=== PATIENT | female | born 1985 | race Caucasian/White ===

== ENCOUNTER 2018-05-20 15:37 | Inpatient (IN) | payer SELFPAY ==
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
[2018-05-20] MEDS ORDERED: Acetaminophen 500 MG TAB ONE (18:33)
[2018-05-20] MEDS ORDERED: Ketorolac Tromethamine 30 MG/ML VIAL ONE (18:33)
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
[2018-05-20] MEDS ORDERED: Ondansetron PF 4 MG/2 ML Vial ONE (18:49)
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
[2018-05-20 19:10] LABS: Actual Bicarbonate (HCO3a) 24.5 mEq/L (22-28); Analyzer IN Cardio ER; Calcium, Ionized 1.14 mmol/L (1.12-1.30); Carboxyhemoglobin (COHb) 0.5 gm% (0.0-3.0); Hemoglobin (Hb) 13.2 g/dL (12.0-16.0); Potassium - ABG Lab 3.68 mmol/L (3.70-5.30); pH, Arterial 7.36 (7.35-7.45)
[2018-05-20 19:11] LABS: Puncture Site RRA
[2018-05-20] MEDS ORDERED: Dextrose 50% Abboject 50 ML SYRINGE SLOW IVP PRN (20:21)
[2018-05-20] MEDS ORDERED: Ondansetron PF 4 MG/2 ML Vial IVP PRN (20:21)
[2018-05-20] MEDS ORDERED: Dextrose 5% in Water 1,000 ML IV PRN (20:21)
[2018-05-20] MEDS ORDERED: hydrALAZINE 20 MG/ML VIAL SLOW IVP PRN (20:21)
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
[2018-05-20] MEDS ORDERED: Acetaminophen 500 MG TAB PO SCH (21:15)
[2018-05-20] MEDS: Sodium Chloride 0.9% 1,000 ML IV SCH (22:28)
[2018-05-20] MEDS: Famotidine 20 MG TAB PO SCH (22:32)
[2018-05-20] MEDS: Senokot S 8.6-50 MG TAB PO SCH (22:35)
[2018-05-20] MEDS: traMADol HCl 50 MG TAB PO PRN (22:36)
[2018-05-20] MEDS: Ketorolac Tromethamine 30 MG/ML VIAL IVP SCH (23:00)
[2018-05-20] MEDS: Acetaminophen 500 MG TAB PO SCH (23:06)
[2018-05-20 23:56] VITALS: BMI 31.0
[2018-05-20] MEDS ORDERED: Ketorolac Tromethamine 30 MG/ML VIAL IVP SCH (23:59)
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
[2018-05-21] MEDS: traMADol HCl 50 MG TAB PO PRN ×2 (03:38→10:31)
[2018-05-21] MEDS: Ketorolac Tromethamine 30 MG/ML VIAL IVP SCH (05:38)
[2018-05-21] MEDS: Acetaminophen 500 MG TAB PO SCH ×3 (05:38→18:29)
[2018-05-21 08:12] LABS: #Basophils 0.1 thou/uL (0.0-0.2); #Eosinphils 0.3 thou/uL (0.0-0.7); #Lymphocytes 3.2 thou/uL (1.20-3.40); #Monocytes 0.7 thou/uL (0.11-0.59); #Neutrophils 5.2 thou/uL (1.40-6.50); %Basophils 0.8 % (0.0-1.0); %Eosinophils 2.8 % (0.0-10.0); %Monocytes 7.3 % (0.0-10.0); %Neutrophils 55.1 % (42.0-75.0); Hemoglobin 12.7 g/dL (12.0-16.0); Mean Corpuscular HGB CONC 34.5 g/dL (32.0-36.0); Mean Corpuscular Hemoglobin 30.6 pg (27.0-31.0); Mean Corpuscular Volume 88.9 fL (78.0-98.0); Mean Platelet Volume 8.2 fL (7.4-10.4); Platelet Count 232 thou/uL (130-400); Red Blood Cell (RBC) Count 4.13 mill/uL (4.20-5.40); White Blood Cell (WBC) Count 9.4 thou/uL (4.8-10.8)
[2018-05-21 08:21] LABS: Anion Gap 11 mmol/L (10-20); BUN (Urea Nitrogen) 9 mg/dL (7.0-18.7); Calc. Creatinine Clearance 145 mL/min (70-130); Calcium 8.4 mg/dL (7.8-10.44); Carbon Dioxide 25 mmol/L (22-29); Chloride 107 mmol/L (98-107); Estimated GFR-MDRD Greater than 90; Glucose 122 mg/dL (70-105); Magnesium 1.9 mg/dL (1.6-2.6); Phosphorus 3.7 mg/dL (2.3-4.7); Potassium 3.9 mmol/L (3.5-5.1); Sodium 139 mmol/L (136-145)
[2018-05-21] MEDS: Senokot S 8.6-50 MG TAB PO SCH ×2 (10:30→20:49)
[2018-05-21] MEDS: Polyethylene Glycol 3350 17 GM Packet PO SCH (10:30)
[2018-05-21] MEDS: Famotidine 20 MG TAB PO SCH ×2 (10:31→20:33)
[2018-05-21] MEDS: Sodium Chloride 0.9% 1,000 ML IV SCH (10:42)
--- NOTE | 2018-05-21 11:06 | PRG ---
DATE OF SERVICE: 05/21/2018 SUBJECTIVE: Ms. Bautista this morning actually appears to be significantly more comfortable than she was yesterday. Her neurologic status and her bilateral lower extremities remain intact. It is somewhat improved secondary to improvement in her pain. MRI from yesterday actually looks somewhat better than what I would have anticipated given the severity of her CT scan. The T12 was thought to be compression fracture and actually appears to be a chronic change such as a Schmorl's node. In speaking with Dr. London, it appears that her posterior longitudinal ligament is likely intact and she does have some dorsal CSF space around the spinal cord at the level of her fracture L1. There is a small area of epidural hematoma. However, this does not appear to have caused any major impact in her symptoms. As such, we will move forward with just conservative treatment in a molded TLSO brace. [facility] should be out to fit her for this and we will continue to follow. She may eat today. Job ID: [id number]
[2018-05-21] MEDS ORDERED: traMADol HCl 50 MG TAB PO SCH ×2 (12:00)
[2018-05-21] MEDS ORDERED: Gabapentin 100 MG CAP PO SCH (12:30)
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
[2018-05-21] MEDS: traMADol HCl 50 MG TAB PO SCH (16:21)
[2018-05-21] MEDS: Gabapentin 100 MG CAP PO SCH ×2 (16:21→20:33)
[2018-05-21] MEDS: tiZANidine HCl 4 MG TAB PO PRN (18:37)
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
[2018-05-21] MEDS: risperiDONE 0.25 MG TAB PO SCH (20:33)
[2018-05-21] MEDS: Escitalopram Oxalate 20 mg Tablet PO SCH (20:33)
[2018-05-22] MEDS: traMADol HCl 50 MG TAB PO SCH ×5 (00:01→23:55)
[2018-05-22] MEDS: Acetaminophen 500 MG TAB PO SCH ×5 (05:34→23:55)
[2018-05-22] MEDS ORDERED: Dexamethasone 10 MG/ML VIAL SLOW IVP SCH (08:30)
[2018-05-22] MEDS: risperiDONE 0.25 MG TAB PO SCH ×2 (08:51→22:03)
[2018-05-22] MEDS: Polyethylene Glycol 3350 17 GM Packet PO SCH (08:51)
[2018-05-22] MEDS: Senokot S 8.6-50 MG TAB PO SCH ×2 (08:51→22:02)
[2018-05-22] MEDS: tiZANidine HCl 4 MG TAB PO PRN (08:51)
[2018-05-22] MEDS: Gabapentin 100 MG CAP PO SCH ×3 (08:51→22:02)
[2018-05-22] MEDS: Famotidine 20 MG TAB PO SCH ×2 (08:51→22:03)
[2018-05-22] MEDS: traMADol HCl 50 MG TAB PO PRN ×2 (08:52→22:05)
--- NOTE | 2018-05-22 11:47 | PRG ---
DATE OF SERVICE: 05/22/2018 SUBJECTIVE: Ms. Bautista still has a lot of back pain. The only medications that we have ordered for her is IV morphine. This may be part of the problem. I have ordered her a dose of Decadron x1 to see if she gets improvement. She does have a clamshell TLSO brace on; however, it is not the custom fit one. I am not sure if this represent the temporary hold while they make that or if this is a mistake that is made. We will reach out to the [facility] today. Job ID: [id number]
[2018-05-22] MEDS: tiZANidine HCl 4 MG TAB PO SCH ×2 (15:44→22:03)
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
[2018-05-22] MEDS: Escitalopram Oxalate 20 mg Tablet PO SCH (22:02)
[2018-05-23] MEDS: traMADol HCl 50 MG TAB PO SCH ×2 (06:15→11:18)
[2018-05-23] MEDS: Acetaminophen 500 MG TAB PO SCH ×2 (06:15→11:18)
[2018-05-23] MEDS: tiZANidine HCl 4 MG TAB PO SCH (08:06)
[2018-05-23] MEDS: Polyethylene Glycol 3350 17 GM Packet PO SCH (08:06)
[2018-05-23] MEDS: Senokot S 8.6-50 MG TAB PO SCH (08:06)
[2018-05-23] MEDS: Famotidine 20 MG TAB PO SCH (08:06)
[2018-05-23] MEDS: Gabapentin 100 MG CAP PO SCH (08:06)
[2018-05-23] MEDS: risperiDONE 0.25 MG TAB PO SCH (08:06)
[2018-05-23] MEDS: traMADol HCl 50 MG TAB PO PRN (12:16)
[2018-05-23 13:30] VITALS: TEMP 97.8
--- NOTE | 2018-05-23 13:36 | PRG ---
DATE OF SERVICE: 05/23/2018 Mr. Bautista was fitted yesterday for a more custom TLSO brace and has actually had a significant improvement in her comfort level. She has been up at bedside standing and walked to the bathroom on her own unassisted. She tolerates this quite well with only minimal amount of pain. At this point, Neurosurgery did recommend that she may be discharged home whenever the trauma team is comfortable with doing so. We will plan to see her in two weeks. She will need to wear hear brace on at all times. on her back, but otherwise she needs to wear this constantly and very snugly. Job ID: [id number]
[2018-05-23 14:04] VITALS: BP 112/68
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
== END 2018-05-23 14:00 | disposition home or self-care (01) | DRG 552 ==
LOC: ERS 15:37 → SURG A 18:33
PROVIDERS: ADMIT Specialist; ATTEND Specialist
DX: S32.011A Stable burst fracture of first lumbar vertebra, initial encounter for closed fracture (principal); S22.089A Unspecified fracture of T11-T12 vertebra, initial encounter for closed fracture; G89.11 Acute pain due to trauma; J45.909 Unspecified asthma, uncomplicated; F32.9 Major depressive disorder, single episode, unspecified; Z87.891 Personal history of nicotine dependence; Z88.2 Allergy status to sulfonamides; Z88.8 Allergy status to other drugs, medicaments and biological substances; Z79.899 Other long term (current) drug therapy; W17.89XA Other fall from one level to another, initial encounter
CPT/HCPCS: 36415; 70450; 72125; 72146; 72148; 80048; 82805; 83735; 84100; 85025; 96374; 96375; G0390; G8978-GP-CJ; G8979-GP-CI; G8987-GO-CK; G8988-GO-CJ; J1100; J1885; J2405; L0639

== ENCOUNTER 2018-05-24 06:15 | Emergency (ER) | payer SELFPAY ==
[2018-05-24] MEDS ORDERED: Methocarbamol 1 GM in Sodium Chloride 0.9% 250 ML 250 ML IVPB SCH (06:45)
== END 2018-05-24 07:30 | disposition left against medical advice (07) ==
LOC: ERS 06:15
DX: S22.019A Unspecified fracture of first thoracic vertebra, initial encounter for closed fracture (principal); J45.909 Unspecified asthma, uncomplicated; F90.9 Attention-deficit hyperactivity disorder, unspecified type; F32.9 Major depressive disorder, single episode, unspecified; Z87.891 Personal history of nicotine dependence; Z79.899 Other long term (current) drug therapy; X58.XXXA Exposure to other specified factors, initial encounter
CPT/HCPCS: 99283; J2800; J7050

== ENCOUNTER 2018-06-07 13:11 | Outpatient (CLI) | payer OTHER ==
--- NOTE | 2018-06-07 14:43 | RAD ---
LUMBAR SPINE TWO VIEWS: History: Follow up L1 fracture. Comparison: CT 04-30-18 FINDINGS: There is no further height loss of the T12 or L1 compression fracture with retropulsion of the L1 fra cture. No new acute fracture or malalignment. IMPRESSION: Unchanged vertebral body fractures. POS: [facility]
== END 2018-06-07 13:12 | disposition home or self-care (01) ==
LOC: TBSIIMAG 13:11
PROVIDERS: ATTEND Neurological Surgery
DX: S32.011D Stable burst fracture of first lumbar vertebra, subsequent encounter for fracture with routine healing (principal)
CPT/HCPCS: 72100

== ENCOUNTER 2018-07-05 10:59 | Outpatient (CLI) | payer OTHER ==
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
== END 2018-07-05 11:00 | disposition home or self-care (01) ==
LOC: TBSIIMAG 10:59
PROVIDERS: ATTEND Neurological Surgery
DX: S22.008A Other fracture of unspecified thoracic vertebra, initial encounter for closed fracture (principal); S32.011D Stable burst fracture of first lumbar vertebra, subsequent encounter for fracture with routine healing
CPT/HCPCS: 72072; 72100

== ENCOUNTER 2018-10-05 14:28 | Emergency (ER) | payer SELFPAY ==
[2018-10-05] MEDS ORDERED: Ketorolac Tromethamine 60 MG/2 ML VIAL ONE (16:15)
--- NOTE | 2018-10-05 16:39 | RAD ---
Exam: 3 views of lumbar spine COMPARISON: 07/05/2018 FINDINGS: Redemonstration of compression fracture involving the T12 level. No significant change in h eight. Associated kyphosis. Stable vertebral body height from L2 through L5. No spondylolisthesis or spondylolysis. IMPRESSION: Stable T12 compression fracture.
== END 2018-10-05 17:04 | disposition home or self-care (01) ==
LOC: ERS 14:28
DX: S22.089A Unspecified fracture of T11-T12 vertebra, initial encounter for closed fracture (principal); M54.5 Low back pain; Z87.891 Personal history of nicotine dependence; X58.XXXA Exposure to other specified factors, initial encounter
CPT/HCPCS: 72100; 96372; J1885

== ENCOUNTER 2019-01-12 12:16 | Emergency (ER) | payer SELFPAY ==
[2019-01-12 14:24] LABS: #Basophils 0.1 thou/uL (0.0-0.2); #Eosinphils 0.2 thou/uL (0.0-0.7); #Lymphocytes 2.3 thou/uL (1.20-3.40); #Monocytes 0.8 thou/uL (0.11-0.59); #Neutrophils 4.4 thou/uL (1.40-6.50); %Eosinophils 2.7 % (0.0-10.0); %Lymphocytes 29.5 % (21.0-51.0); %Monocytes 9.8 % (0.0-10.0); Hemoglobin 14.6 g/dL (12.0-16.0); Mean Corpuscular HGB CONC 34.9 g/dL (32.0-36.0); Mean Corpuscular Hemoglobin 30.8 pg (27.0-31.0); Mean Corpuscular Volume 88.3 fL (78.0-98.0); Mean Platelet Volume 8.6 fL (7.4-10.4); Platelet Count 231 thou/uL (130-400); Red Blood Cell (RBC) Count 4.73 mill/uL (4.20-5.40); White Blood Cell (WBC) Count 7.7 thou/uL (4.8-10.8)
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
--- NOTE | 2019-01-12 14:36 | CT ---
CT THORACIC SPINE 01/12/19 PROVIDED CLINICAL HISTORY: Back pain status post fall. FINDINGS: Comparison is made with the study dated 12/12/18 CT lumbar spine. Chronic burst fracture of L1 with associated canal stenosis appears not significantly changed with re spect to the prior study. Remote minimal superior end plate compression deformity of T12 also appears stable. Thoracic vertebral body heights appear otherwise preserved. There is no apparent central can al stenosis involving the thoracic spine. Thoracic alignment remains normal. IMPRESSION: No evidence for an acute osseous abnormality. Stable fractures of T12 and L1 as previously described. POS: [facility]
[2019-01-12 14:40] LABS: BHCG - Serum Negative (NEGATIVE); Pregs Control Background? CLEAR/WHITE (CLR/WHITE); Pregs Control Bar Appear? YES (CONTROL BAR)
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
[2019-01-12 14:44] LABS: Anion Gap 8 mmol/L (10-20); BUN (Urea Nitrogen) 12 mg/dL (7.0-18.7); Calc. Creatinine Clearance 0 mL/min (70-130); Calcium 9.7 mg/dL (7.8-10.44); Carbon Dioxide 30 mmol/L (22-29); Chloride 102 mmol/L (98-107); Estimated GFR-MDRD Greater than 90; Glucose 120 mg/dL (70-105); Potassium 3.7 mmol/L (3.5-5.1); Sodium 136 mmol/L (136-145)
[2019-01-12] MEDS ORDERED: Ketorolac Tromethamine 30 MG/ML VIAL ONE (14:55)
[2019-01-12] MEDS ORDERED: Ondansetron PF 4 MG/2 ML Vial ONE (15:30)
[2019-01-12] MEDS ORDERED: Morphine 4 MG/ML VIAL ONE (15:30)
[2019-01-12] MEDS ORDERED: Methocarbamol 0.5 GM in Sodium Chloride 0.9% 100 ML IVPB SCH (15:45)
== END 2019-01-12 17:36 | disposition home or self-care (01) ==
LOC: ERS 12:16
DX: M54.5 Low back pain (principal); M54.6 Pain in thoracic spine; J45.909 Unspecified asthma, uncomplicated; F90.9 Attention-deficit hyperactivity disorder, unspecified type; F31.9 Bipolar disorder, unspecified; V69.9XXA Occupant (driver) (passenger) of heavy transport vehicle injured in unspecified traffic accident, initial encounter
CPT/HCPCS: 36415; 72128; 72131; 80048; 84703; 85025; 96365; 96372; 96375; J1885; J2270; J2405; J2800; J3490

== ENCOUNTER 2019-02-28 16:25 | Emergency (ER) | payer SELFPAY ==
[~2019-02-28 16:25] MED LIST: ISOVUE-370 76%-LOCM 1 ML ONE
[2019-02-28] MEDS ORDERED: Ondansetron PF 4 MG/2 ML Vial ONE (17:29)
[2019-02-28] MEDS ORDERED: Morphine 4 MG/ML VIAL ONE (17:29)
[2019-02-28 17:34] LABS: Hemoglobin 15.3 g/dL (12.0-16.0); Mean Corpuscular HGB CONC 34.2 g/dL (32.0-36.0); Mean Corpuscular Hemoglobin 30.1 pg (27.0-31.0); Mean Platelet Volume 8.5 fL (7.4-10.4); Platelet Count 344 thou/uL (130-400); Red Blood Cell (RBC) Count 5.09 mill/uL (4.20-5.40); White Blood Cell (WBC) Count 10.6 thou/uL (4.8-10.8)
[2019-02-28 17:40] LABS: BHCG - Serum Negative (NEGATIVE); Pregs Control Background? CLEAR/WHITE (CLR/WHITE); Pregs Control Bar Appear? YES (CONTROL BAR)
[2019-02-28 17:51] LABS: Band 3 % (5-11); Eosinophils 1 % (0-10); Lymphocytes 14 % (21-51); MDiff Complete? YES; Monocytes 3 % (0-10); Neutrophil 78 % (42-75); Platelet Morphology Comment Appears Adequate; Reactive Lymphocytes 1 % (0-10)
[2019-02-28 17:55] LABS: ALT (SGPT) 71 U/L (8-55); AST (SGOT) 42 U/L (5-34); Albumin 4.6 g/dL (3.5-5.0); Alkaline Phosphatase 72 U/L (40-110); Anion Gap 13 mmol/L (10-20); BUN (Urea Nitrogen) 21 mg/dL (7.0-18.7); Bilirubin, Total 0.5 mg/dL (0.2-1.2); Calc. Creatinine Clearance 0 mL/min (70-130); Calcium 9.6 mg/dL (7.8-10.44); Carbon Dioxide 24 mmol/L (22-29); Chloride 105 mmol/L (98-107); Estimated GFR-MDRD 70; Globulin 3.5 g/dL (2.4-3.5); Glucose 120 mg/dL (70-105); Potassium 3.3 mmol/L (3.5-5.1); Protein, Total 8.1 g/dL (6.0-8.3); Sodium 139 mmol/L (136-145)
[2019-02-28 18:09] LABS: Amphetamine Detected (NotDetected); Barbiturates Screen Not Detected (NotDetected); Benzodiazepine Screen Not Detected (NotDetected); Cocaine Metabolite Screen Not Detected (NotDetected); Medtox Control Line Valid? VALID (VALID); Medtox Reader # READER 4; Methadone Not Detected (NotDetected); Methamphetamine Detected (NotDetected); Opiate Screen Not Detected (NotDetected); Oxycodone Screen Not Detected (NotDetected); Phencyclidine (PCP) Not Detected (NotDetected); THC/Cannabinoid Screen Detected (NotDetected); Tricyclic Screen Not Detected (NotDetected)
--- NOTE | 2019-02-28 18:11 | RAD ---
RADIOGRAPH CHEST 1 VIEW: DATE: 02/28/2019 TIME: 5:42 PM HISTORY: 34-year-old female with dyspnea COMPARISON: 03/24/2017 FINDINGS: Prominent interstitial markings at the left lower lung zone, representing a mild potential interval c hange. Rest of lungs are grossly clear. Cardiomediastinal silhouette is normal. No pneumothorax. Lateral costophrenic angles are sharp. IMPRESSION: Nonspecific finding of mildly prominent interstitial markings at the left lower lung zone.
[2019-02-28] MEDS ORDERED: diphenhydrAMINE 50 MG/ML VIAL ONE (18:18)
[2019-02-28] MEDS ORDERED: Famotidine/PF 20 mg/2ml Vial ONE (18:18)
[2019-02-28] MEDS ORDERED: methylPREDNISolone Sod Succ/PF 125 MG/2 ML VIAL ONE (18:18)
--- NOTE | 2019-02-28 20:06 | CT ---
CT PULMONARY ANGIOGRAM WITH IV CONTRAST AND 3D MIP RECONSTRUCTIONS: 02/28/19 PROVIDED CLINICAL HISTORY: Dyspnea. Evaluation is limited due to bolus timing issues and patient body habitus. There is no evidence for c entral or proximal segmental pulmonary embolus. The heart, pericardium and great vessels demonstrate an unremarkable CT appearance. The lungs are free of significant opacity. There is no pleural fluid or pneumothorax apparent. The ai rway appears patent and of normal caliber. There is no evidence for thoracic lymph node enlargement. The visualized portions of the upper abdomen demonstrate changes of fatty infiltration of the liver. The osseous structures demonstrate no concerning lytic or blastic lesions. Sequela of prior fracture noted involving T12 and L1. IMPRESSION: 1. No evidence for central or proximal segmental pulmonary embolus. 2. Chronic findings as above. POS: [facility]
--- NOTE | 2019-03-04 14:42 | EKG ---
Test Reason : Blood Pressure : / mmHG Vent. Rate : 141 BPM Atrial Rate : 141 BPM P-R Int : 136 ms QRS Dur : 070 ms QT Int : 282 ms P-R-T Axes : 046 030 012 degrees QTc Int : 431 ms Sinus tachycardia Possible Left atrial enlargement Borderline ECG Confirmed by TIFFANIE BRAGG DO ([id number]), graphic editor KAVIN ABDULLAHI ([id number] on 03/04/2019 2:42:10 PM Referred By: Confirmed By:TIFFANIE BRAGG DO
== END 2019-02-28 21:39 | disposition home or self-care (01) ==
LOC: ERS 16:25
DX: G89.29 Other chronic pain (principal); M54.6 Pain in thoracic spine; R06.02 Shortness of breath; R20.2 Paresthesia of skin; J45.909 Unspecified asthma, uncomplicated; F41.9 Anxiety disorder, unspecified; F31.9 Bipolar disorder, unspecified; F90.9 Attention-deficit hyperactivity disorder, unspecified type; Z87.891 Personal history of nicotine dependence; Z79.899 Other long term (current) drug therapy
CPT/HCPCS: 36415; 71045; 71275; 80053; 80306; 84703; 85025; 85379; 93005; 96374; 96375; J1200; J2270; J2405; J2930; Q9966; S0028

== ENCOUNTER 2020-07-02 02:53 | Emergency (ER) | payer BC, SELFPAY ==
[2020-07-02] MEDS ORDERED: Morphine 10 MG/ML VIAL ONE (03:27)
== END 2020-07-02 03:46 | disposition home or self-care (01) ==
LOC: ERS 02:53
DX: M54.5 Low back pain (principal); E11.9 Type 2 diabetes mellitus without complications; J45.909 Unspecified asthma, uncomplicated; Z87.891 Personal history of nicotine dependence
CPT/HCPCS: 96372; 99283; J2270